=== PATIENT | female | born 1995 | race Caucasian/White ===

== ENCOUNTER 2019-10-14 18:15 | Emergency (ER) | payer SELFPAY ==
[2019-10-14] MEDS ORDERED: Ondansetron ODT 4 MG TAB ONE (18:51)
[2019-10-14] MEDS ORDERED: Acetaminophen 500 MG TAB ONE (18:51)
[2019-10-14] MEDS ORDERED: HYDROcodone/Acetaminophen 5/325 mg Tablet ONE (18:51)
== END 2019-10-14 18:55 | disposition home or self-care (01) ==
LOC: NAV ERS 18:15
DX: K02.9 Dental caries, unspecified (principal)
CPT/HCPCS: 99282; Q0162

== ENCOUNTER 2019-11-14 07:59 | Emergency (ER) | payer SELFPAY | END 2019-11-14 08:58 | disposition home or self-care (01) | LOC: NAV ERS 07:59 | DX: K02.9 Dental caries, unspecified (principal); F17.210 Nicotine dependence, cigarettes, uncomplicated; Z95.1 Presence of aortocoronary bypass graft | CPT/HCPCS: 99282 ==

== ENCOUNTER 2020-05-04 12:53 | Emergency (ER) | payer SELFPAY | END 2020-05-04 13:26 | disposition home or self-care (01) | LOC: NAV ERS 12:53 | DX: K08.89 Other specified disorders of teeth and supporting structures (principal); Z87.891 Personal history of nicotine dependence | CPT/HCPCS: 99282 ==

== ENCOUNTER 2020-05-21 17:01 | Emergency (ER) | payer SELFPAY | END 2020-05-21 17:47 | disposition home or self-care (01) | LOC: NAV ERS 17:01 | DX: K02.9 Dental caries, unspecified (principal); Z87.891 Personal history of nicotine dependence | CPT/HCPCS: 99282 ==